=== PATIENT | female | born 1990 | race Caucasian/White ===

== ENCOUNTER 2019-04-13 09:18 | Emergency (ER) | payer OTHER ==
[~2019-04-13] VITALS: Ht 157.5 cm; Wt 93.0 kg
[2019-04-13] MEDS ORDERED: PHENERGAN25 MG PO (09:26)
[2019-04-13] MEDS ORDERED: ENDOMETRIN100 MG (09:26)
[2019-04-13] MEDS ORDERED: PEPCID20 MG (09:27)
[2019-04-13] MEDS ORDERED: ZOFRAN4 MG (09:27)
== END 2019-04-13 10:03 | disposition home or self-care (01) ==
LOC: ER 09:18
DX: G56.01 Carpal tunnel syndrome, right upper limb (principal); O26.891 Other specified pregnancy related conditions, first trimester; Z3A.10 10 weeks gestation of pregnancy

== ENCOUNTER → 2022-04-18 | Outpatient (CLI) | payer OTHER ==
[~2022-04-18] MED LIST: ENDOMETRIN100 MG; PEPCID20 MG; PHENERGAN25 MG PO; ZOFRAN4 MG
== END | disposition home or self-care (01) ==
LOC: SONOGRAMA 08:00
PROVIDERS: ATTEND Pathology Anatomic Pathology & Clinical Pathology
DX: E07.9 Disorder of thyroid, unspecified (principal); D34 Benign neoplasm of thyroid gland; E04.9 Nontoxic goiter, unspecified; E04.2 Nontoxic multinodular goiter